=== PATIENT | female | born 1990 | race Caucasian/White ===

== ENCOUNTER 2020-01-16 10:01 | Emergency (ER) | payer BC, SELFPAY ==
[2020-01-16 10:13] VITALS: BP 137/75; PULSE 84; RESP 18; TEMP 36.9; O2SAT 99
--- NOTE | 2020-01-16 10:19 | ED.FEMALEGU ---
HPI - Female Genitourinary General Chief complaint: Urogenital-Female Stated complaint: uti Time Seen by Provider: 01/16/20 10:19 Source: patient and RN notes reviewed Mode of arrival: ambulatory Limitations: no limitations History of Present Illness HPI Narrative: 29-year-old female presents with concern for urinary tract infection. Reports history of urinary tract infections, particularly when she does not urinate after intercourse. Reports 1 day history of urinary urgency, frequency, pressure. Denies dysuria, hematuria, flank pain, abdominal pain, nausea, vomiting. MD elicited complaint: UTI Related Data Home Medications Medication Instructions Recorded Confirmed Chewable Multi Vitamin 1 tablet DAILY 01/16/20 01/16/20 norethindrone (contraceptive) 0.35 mg DAILY 01/16/20 01/16/20 Allergies Allergy/AdvReac Type Severity Reaction Status Date / Time No Known Allergies Allergy Verified 01/16/20 10:05 Review of Systems Review of Systems: Narrative: CONSTITUTIONAL: Denies malaise, chills, sweats, or fever. CARDIOVASCULAR: Denies chest pain, palpitations, or edema. RESPIRATORY: Denies cough or dyspnea. GASTROINTESTINAL: Denies abdominal pain, nausea, vomiting, diarrhea GENITOURINARY: Denies dysuria, flank pain, or hematuria. Reports urgency, frequency, suprapubic pressure MUSCULOSKELETAL: Denies back pain or myalgia. All systems reviewed & are unremarkable except as noted in HPI and below PMFSH Social History Social History Smoking status: Former smoker Alcohol intake: current Gender identity (if verbalized by the patient): Female Comments At time of signature, agree with nursing past medical, surgical, social and family history. There is no relevant family history pertinent to the presenting complaint Exam Narrative: Exam Narrative: GENERAL: Well-appearing, well-nourished, and in no acute distress. HEAD: Normocephalic. EYES: PERRLA, conjunctivae clear. NECK: Supple. No lymphadenopathy CHEST: Clear to auscultation. No respiratory distress. HEART: Regular rate and rhythm. ABDOMEN: Soft, nontender upon palpation, nondistended, normal active bowel sounds, no palpable or pulsatile masses, no guarding. No CVA tenderness SKIN: Warm, dry, no rash. NEURO: Alert and oriented x3. PSYCH: Normal mood and affect Course Course Emergency Course: Patient is aware of diagnosis, understands and agrees to treatment plan. Anticipatory guidance given. Patient agrees to follow-up as directed and is aware of reasons to seek care at the emergency department. Portions of this record may have been created with voice recognition software Vital Signs Vital signs: Vital Signs Temperature 98.5 F 01/16/20 10:13 Pulse Rate 84 01/16/20 10:13 Respiratory Rate 18 01/16/20 10:13 Blood Pressure 137/75 01/16/20 10:13 Pulse Oximetry 99 01/16/20 10:13 Temperature 98.5 F 01/16/20 10:13 Pulse Rate 84 01/16/20 10:13 Respiratory Rate 18 01/16/20 10:13 Blood Pressure 137/75 01/16/20 10:13 Pulse Oximetry 99 01/16/20 10:13 Reviewed. MDM - Female Genitourinary MDM Narrative Medical decision making narrative: Exam findings and UA show no acute concerns or changes; patient is non-toxic appearing and is in no distress. Patient is appropriate for outpatient treatment and follow-up. Differential Diagnosis Differential diagnosis: Likely urinary tract infection and cystitis Lab Data Labs: Urine Characteristics Cloudy Critical Care Time Critical Care Time Critical Care Time: No Discharge Plan Discharge Clinical Impression: Symptoms of urinary tract infection Patient Disposition: Home, Self-Care Condition: Stable Instructions: Antibiotic Form, Urinary Tract Infection in Women (ED) Additional Instructions: We will send a urine culture off to the lab; if the culture identifies an organism that the prescribed antibiotic will
== END 2020-01-16 10:32 | disposition home or self-care (01) ==
PROVIDERS: Emergency Provider Nurse Practitioner
DX: R35.0 Frequency of micturition (principal); R39.15 Urgency of urination; Z87.891 Personal history of nicotine dependence
CPT/HCPCS: 81003; 87077; 87086; 87088; 99213; G0463

== ENCOUNTER → 2021-02-13 14:05 | Outpatient (CLI) | payer BC, SELFPAY ==
--- NOTE | ~2021-02-13 | US_ITS ---
EXAMINATION: US OB <= 14 weeks fetus DATE: 02/13/2021 14:21 INDICATION: Uncertain dates. First trimester. TECHNIQUE: Real-time transabdominal pelvic ultrasound was performed. COMPARISON: None. FINDINGS: The uterus measures 11.1 x 7.6 x 8.6 cm. There is an intrauterine gestational sac. A yolk sac is iden tified. The crown rump length measures 3.4 cm, which correlates with an estimated gestational age of 10 weeks and 2 day(s) (+/-) 6 day(s). heart motion is identified measuring 178 beats per minute (bpm) by M-mode Doppler. The right ovary measures 3.6 x 3.3 x 3.0 cm. The left ovary measures 2.1 x 1.4 x 2.1 cm. There is no free fluid in the pelvis. IMPRESSION: 1. Single living intrauterine gestation with estimated date of delivery of 09/09/2021. Reviewed, dictated and finalized at location A. BODY INSPECTOR IMPRESSION: 1. Single living intrauterine gestation with estimated date of delivery of 08/14.
== END ==
PROVIDERS: Visit Provider Nurse Practitioner
DX: Z34.91 Encounter for supervision of normal pregnancy, unspecified, first trimester (principal); Z3A.10 10 weeks gestation of pregnancy
CPT/HCPCS: 76801

== ENCOUNTER → 2021-04-10 14:58 | Outpatient (CLI) | payer BC, SELFPAY ==
--- NOTE | ~2021-04-10 | US_ITS ---
US OB /maternal detail DATE: 04/10/2021 15:28 INDICATION: anatomy screen TECHNIQUE: Real time imaging and doppler analysis COMPARISON: 02/13/2021 obstetrical ultrasound FINDINGS: Live [place] intrauterine gestation, with fetus in variable position including breech. T he fetus is very active. Posterior placenta, lower margin 7 cm above internal os. Subjectively normal amount of amniotic fluid. Normal cerebral ventricle size. Normal cerebellum. Normal cisterna magna. Normal nuchal fold. upper lip normal. Normal cervical spine. diaphragm intact. heart rate of 145 beats per minute. Four chamber heart. Outflow tracts not well visualized. Fluid in stomach and urinary bladder. No hydronephrosis. Three vessel umbilical cord with normal inser tion at abdominal wall. Four extremities demonstrated. BPD 4.25 cm; 18 weeks 6 days Head circumference 16.13 cm; 19 weeks Abdominal circumference 14.25 cm; 19 weeks 4 days Femur length 3.06 cm; 19 weeks 3 days Composite age by Hadlock formula: 19 weeks 2 days plus or minus 1 week 2 days: ANGEL LUIS: 09/02/2021 EFW: 293.9 plus or mins 44 grams EFW-GP greater than 97% HC/AC: 1.13 (within normal range of 1.09-1.26) FL/HC 18.98 (slightly above normal range of 16.30-18.73) IMPRESSION: Composite age by Hadlock formula: 19 weeks 2 days plus or minus 1 week 2 days: ANGEL LUIS: 08/14 EFW: 293.9 plus or mins 44 grams Reviewed, dictated and finalized at Location A. Reviewed, dictated and finalized at location A. F OPERATOR SYNTHESIS IMPRESSION: Composite age by Hadlock formula: 19 weeks 2 days plus or minus 1 week 2 days: ANGEL LUIS: 09/02/2021 EFW: 293.9 plus or mins 44 grams
== END ==
PROVIDERS: Visit Provider Obstetrics & Gynecology Gynecology
DX: Z36.9 Encounter for antenatal screening, unspecified (principal); Z3A.19 19 weeks gestation of pregnancy
CPT/HCPCS: 76805

== ENCOUNTER 2021-05-12 10:08 | Emergency (ER) | payer BC, SELFPAY ==
--- NOTE | 2021-05-12 10:16 | ED.URI ---
HPI - URI/Sore Throat General Chief Complaint: Upper Respiratory Infection Stated Complaint: sorethroat,runny nose Time Seen by Provider: 05/12/21 10:20 Source: patient, RN notes reviewed and old records reviewed Mode of arrival: ambulatory Limitations: no limitations History of Present Illness HPI Narrative: 30-year-old female patient [facility] with complaints of sore throat and cough starting 3 days ago. Patient reports throat hurts worse when coughing, feels like needles. Reports stuffy and runny nose. Clear discharge, some sinus drainage. Reports top of teeth feel tender. Coughing throughout the day. Occasionally bringing up thick greenish sputum. Reports throat hurts when coughing. Denies shortness of breath or difficulty breathing. Appetite is good. Has been staying hydrated. Patient is 23 weeks . Has only been taking Tylenol, has been unsure what she can take being . Denies fever muscle aches or chills. MD elicited complaint: cough, sore throat, rhinorrhea and nasal congestion Related Data Home Medications Medication Instructions Recorded Confirmed ergocalciferol (vitamin D2) 1,250 mcg PO WEEKLY 05/12/21 05/12/21 Allergies Allergy/AdvReac Type Severity Reaction Status Date / Time No Known Allergies Allergy Verified 05/12/21 10:25 Review of Systems Review of Systems: CONSTITUTIONAL: Denies malaise, chills, sweats, or fever. EYES: Denies visual changes, redness, or discharge. ENT: Reports rhinorrhea, congestion, top of teeth are tender, and sore throat. Denies earache. CARDIOVASCULAR: Denies chest pain, palpitations, or edema. RESPIRATORY: Reports cough with greenish sputum. Denies dyspnea or shortness of breath. GASTROINTESTINAL: Denies abdominal pain, nausea, vomiting, diarrhea SKIN: Denies rash or itching. MUSCULOSKELETAL: Denies myalgia. NEUROLOGIC: Denies headache. All systems reviewed & are unremarkable except as noted in HPI and below PMFSH Social History Social History Smoking status: Former smoker Alcohol intake: current Gender identity (if verbalized by the patient): Female Comments At time of signature, agree with nursing past medical, surgical, social and family history. There is no relevant family history pertinent to the presenting complaint Exam Narrative: GENERAL: Well-appearing, well-nourished, female and in no acute distress. Pleasant and cooperative, casually dressed. Patient is 23 weeks . HEAD: Normocephalic, atraumatic EYES: Conjunctivae clear ENT: Nares clear, turbinates edematous and erythematous, clear discharge. Mucous membranes moist. TM pearly ortega with dull light reflex bilaterally; no tragal tenderness. Oropharynx erythematous without lesions. Tonsils enlarged and without exudate, no drooling, no hoarseness, no trismus, uvula midline. Clear postnasal drainage. NECK: Supple. Full range of motion. No anterior cervical or tonsillar lymphadenopathy or tenderness with palpation. CHEST: Clear to auscultation, breath sounds equal. No wheezing, rhonchi, rales, or stridor. No respiratory distress, speaks in full sentences. HEART: Regular rate and rhythm. No murmur heard. SKIN: [place], warm, dry, no rash. NEURO: Alert and oriented x3. PSYCH: Normal mood and affect Course Course Emergency Course: Patient is aware of diagnosis, understands and agrees to treatment plan. Anticipatory guidance given. Patient agrees to follow-up as directed and is aware of reasons to seek care at the emergency department. Portions of this record may have been created with voice recognition software Level of Care: Express Care Visit Vital Signs Vital signs: Vital Signs Temperature 36.7 C 05/12/21 10:18 Pulse Rate 83 05/12/21 10:18 Respiratory Rate 18 05/12/21 10:18 Blood Pressure 140/64 05/12/21 10:18 Pulse Oximetry 99 05/12/21 10:18 Temperature 36.7 C 05/12/21 10:18 Pulse
[2021-05-12 10:18] VITALS: BP 140/64; PULSE 83; RESP 18; TEMP 36.7; O2SAT 99
== END 2021-05-12 10:47 | disposition home or self-care (01) ==
PROVIDERS: Emergency Provider Nurse Practitioner Family
DX: O99.512 Diseases of the respiratory system complicating pregnancy, second trimester (principal); Z3A.23 23 weeks gestation of pregnancy; J06.9 Acute upper respiratory infection, unspecified; O90.89 Other complications of the puerperium, not elsewhere classified; R05.9 Cough, unspecified; Z87.891 Personal history of nicotine dependence
CPT/HCPCS: 87081; 87880; 99213; G0463

== ENCOUNTER → 2021-05-21 13:47 | Outpatient (CLI) | payer BC, SELFPAY ==
--- NOTE | ~2021-05-21 | US_ITS ---
EXAMINATION: US OB follow up DATE: 05/21/2021 14:19 INDICATION: Incomplete second trimester anatomic survey, spotting complicating second trimester TECHNIQUE: Real-time ultrasound of the pelvis was performed. The interpreting radiologist was not pre sent for the study. COMPARISON: None. FINDINGS: There is a single living fetus in vertex presentation. The placenta is posterior and 6 cm f rom the internal cervical os. cardiac activity and movement are noted. heart rate i s 158 beats per minute (bpm). The amniotic fluid index is 13.4 cm which is normal (normal range: 9.8 cm to 21.9 cm). The ventricular outflow tracts of the heart appear normal. The following biometric data were obtained: Biparietal diameter (BPD): 6.0 cm; head circumference (HC): 22.8 cm; abdominal circumference (AC): 19 .6 cm; femur length (FL): 4.5 cm. These measurements are concordant. Estimated weight is 706 g +/- 106 g, which correlates with the 60th percentile when 09/09/2021 i s used as estimated date of delivery. As single measurements, these parameters are each equal to the following estimated gestational ages w ith ranges of +/- 2 standard deviations: BPD: 24 weeks 4 days ( 22 weeks 3 days - 26 weeks 5 days). HC: 24 weeks 6 days ( 22 weeks 6 days - 27 weeks 0 days). AC: 24 weeks 2 days ( 22 weeks 1 days - 26 weeks 3 days). FL: 24 weeks 5 days ( 22 weeks 5 days - 26 weeks 6 days). estimated gestational age based solely on measurements from this exam is 24 weeks 4 days +/- 1 weeks 5 days. IMPRESSION: 1. Single living fetus in vertex presentation. 2. Estimated weight is 706 g +/- 106 g, which correlates with the 60th percentile when 2 is used as estimated date of delivery. 3. Normal amniotic fluid index. Reviewed, dictated and finalized at location B. IRON INSPECTOR IMPRESSION: 1. Single living fetus in vertex presentation. 2. Estimated weight is 706 g +/- 106 g, which correlates with the 60th rcentile when 09/09/2021 is used as estimated date of delivery. 3. Normal amniotic fluid index.
== END ==
PROVIDERS: Visit Provider Obstetrics & Gynecology Gynecology
DX: O26.852 Spotting complicating pregnancy, second trimester (principal); Z3A.24 24 weeks gestation of pregnancy
CPT/HCPCS: 76816

== ENCOUNTER → 2021-08-06 15:47 | Outpatient (CLI) | payer BC, SELFPAY ==
--- NOTE | ~2021-08-06 | US_ITS ---
EXAMINATION: US OB follow up DATE: 08/06/2021 16:11 INDICATION: Size greater than dates. Evaluate growth. TECHNIQUE: Real-time transabdominal obstetric ultrasound. FINDINGS: Comparison to multiple prior studies sequentially, with oldest reviewed study dated 2020. There is a single living fetus in vertex presentation. The placenta is posterior without placenta pr evia. cardiac activity and movement is noted with a heart rate of 1:30 beats per minute. The amniotic fluid volume is normal. SHILOH measures 15.8 cm. The following biometric data were obtained: BPD: 92mm corresponds to gestational age 37 weeks 1 days. Head circumference: 327mm corresponds to gestational age 37 weeks 0 days. Abdominal circumference: 336mm corresponds to gestational age 37 weeks 4 days. Femur length: 64mm corresponds to gestational age 32 weeks 6 days. Estimated weight: 2902grams +/- 435grams, 79.6% by Hadlock method.] IMPRESSION: 1. Single living intrauterine presentation with an estimated gestational age of 35 weeks 1 days by inititial ultrasound. EDC by initial ultrasound is 09/09/2021 Appropriate interval grow th. 2. Normal placenta. Reviewed, dictated and finalized at location A. IMPRESSION: 1. Single living intrauterine presentation with an estimated gestati onal age of 35 weeks 1 days by inititial ultrasound. EDC by initial ultrasound is 09/09/2021 Appropriate interval growth. 2. Normal placenta.
== END ==
PROVIDERS: PCP Nurse Practitioner; Visit Provider Nurse Practitioner
DX: O36.63X3 Maternal care for excessive fetal growth, third trimester, fetus 3 (principal); Z3A.37 37 weeks gestation of pregnancy
CPT/HCPCS: 76816

== ENCOUNTER 2021-09-02 04:47 | Inpatient (IN) | payer BC, SELFPAY ==
[2021-09-01 23:10] VITALS: BP 121/56; PULSE 74; RESP 16; TEMP 36.9; O2SAT 98
[2021-09-02] VITALS (183 sets, daily range): BP systolic 63–142; BP diastolic 41–104; PULSE 54–184; RESP 14–18; TEMP 36.4–37.4; O2SAT 81–100; BMI 36.6
[2021-09-02 05:20] LABS: Basophils Percent Auto 0.4 % (0.2-1.2); Eosinophils Absolute Auto 0.3 K/mm3 (0-0.3); Hemoglobin 12.5 g/dL (12.0-15.0); Immature Granulocyte Absolute 0.07 K/mm3 (0.00-0.031); Immature Granulocyte Percent A 0.7 % (0-0.5); Lymphocytes Absolute Auto 2.18 K/mm3 (0.9-3.2); Lymphocytes Percent Auto 20.5 % (18.3-44.2); Mean Corpuscular HGB Conc 32.9 g/dl (32-36); Mean Corpuscular Volume 91.3 fl (80-100); Mean Platelet Volume 10.3 fl (7.4-10.4); Monocytes Absolute Auto 0.8 K/mm3 (0.1-0.6); Monocytes Percent Auto 7.4 % (2.6-8.5); Neutrophils Absolute Auto 7.2 K/mm3 (1.3-6.7); Platelet Count Result 221 k/mm3 (150-375); Red Blood Count 4.16 M/mm3 (4.2-5.4); Red Cell Distribution Width 13.6 % (11.5-14.5); White Blood Count 10.6 K/mm3 (4.5-10.0)
[2021-09-02] MEDS: LACTATED RINGERS 1,000 ML 125 ML IV CONT ×3 (05:26→11:42)
[2021-09-02] MEDS: OXYTOCIN 30 UNITS/NS 500 ML 30 UNITS/500 ML BAG IV CONT (05:27)
--- NOTE | 2021-09-02 05:56 | WPDANESEPP ---
Anes - Eval Pre Procedure Procedure: labor epidural Date/Time: 09/02/21 05:56 Surgeon: joel Pre Op Diagnosis: Induction of Labor Patient Data Age: 31 Gender: F Height: 1.57 m Weight: 90.7 kg Last Vital Signs Temp 36.9 C 09/02/21 05:21 Pulse 91 09/02/21 05:45 Resp 18 09/02/21 05:21 BP 123/70 09/02/21 05:45 Allergies Allergy/AdvReac Type Severity Reaction Status Date / Time No Known Allergies Allergy Verified 05/12/21 10:25 Home Medications Medication Instructions Recorded Confirmed Type ergocalciferol (vitamin D2) 1,250 1,250 mcg PO WEEKLY 05/12/21 05/12/21 History mcg (50,000 unit) capsule Lactobacillus cap PO 08/19/21 History acidophilus-Bifidobac.animalis 2.5 billion cell capsule (Daily Probiotic) loratadine 10 mg tablet (Claritin) 10 mg PO DAILY 08/19/21 08/19/21 History prenat.vits,mely,nod-ubng-potbe 1 tablet PO HS 08/19/21 08/19/21 History Laboratory Tests 09/02/21 09/02/21 09/02/21 05:14 05:14 05:14 WBC 10.6 K/mm3 H K/mm3 (4.5-10.0) RBC 4.16 M/mm3 L M/mm3 (4.2-5.4) Hgb 12.5 g/dL g/dL (12.0-15.0) Hct 38.0 % % (37.0-47.0) MCV 91.3 fl fl (80-100) MCH 30.0 pg pg (26-34) MCHC 32.9 g/dl g/dl (32-36) RDW 13.6 % % (11.5-14.5) Plt Count 221 k/mm3 k/mm3 (150-375) MPV 10.3 fl fl (7.4-10.4) Immature Gran % (Auto) 0.7 % H % (0-0.5) Neut % (Auto) 68.0 % % (45.5-73.1) Lymph % (Auto) 20.5 % % (18.3-44.2) Esmeralda % (Auto) 7.4 % % (2.6-8.5) Eos % (Auto) 3.0 % % (0-4.4) Baso % (Auto) 0.4 % % (0.2-1.2) Lymph # (Auto) 2.18 K/mm3 K/mm3 (0.9-3.2) Esmeralda # (Auto) 0.8 K/mm3 H K/mm3 (0.1-0.6) Eos # (Auto) 0.3 K/mm3 K/mm3 (0-0.3) Baso # (Auto) 0.0 K/mm3 K/mm3 (0.0-0.1) Abs Immat Gran (auto) 0.07 K/mm3 H K/mm3 (0.00-0.031) Absolute Neuts (auto) 7.2 K/mm3 H K/mm3 (1.3-6.7) Absolute Nucleated RBC 0.0 K/mm3 K/mm3 (0.0-0.012) Nucleated RBC % 0.0 % % (0.0-0.2) RPR Pending Blood Type A Positive Antibody Screen Pending Patient hx anesthesia problems: none Family hx anesthesia problems: none Results Review: All pre-operative results and documents have been reviewed as part of the pre-operative evaluation. [facility] Family History Family History (Updated 08/19/21 @ 14:56 by Lulu Morin RN) Other Patient denies significant medical history Unknown family medical history Social History Social History Smoking status: Former smoker Tobacco type: cigarettes Smoking end date: 09/04/21 Alcohol intake: current Substance use: never Gender identity (if verbalized by the patient): Female Spiritual care concerns: No Exam Day of Procedure 09/02/21 05:56
--- NOTE | 2021-09-02 08:44 | WPDOBADMIT ---
Obstetrics - Admit Note Admission Note: record reviewed. No pertinent additions to the history and/or any subsequent changes in the physical findings that are not consistent with the expected course of the were found. Additions to the history and/or subsequent changes in the physical findings follow. None.Here for MIL at 39 wks. Cervix 3-4/50/-2 AROM with clear fluid. FHTs reactive.
--- NOTE | 2021-09-02 15:09 | PM.IMHP ---
H&P: HPI History of Present Illness Date/Time: 09/02/21 15:09 Chief Complaint: Failure to descend Narrative: the patient is a 31-year-old 3 para 2 admitted at 39 weeks for medical induction of labor. Labor progressed quickly. Patient had a 1hour episode of pushing with no descent. Position change and 2nd effort at pushing has been unsuccessful in bringing the infant pass the 0 station with the vertex. Was recommended at this time to proceed with primary . Patient voices understanding and agrees to proceed. In addition the patient has decided to have permanent sterilization and requests bilateral tubal ligation. As previously discussed in the office, risks of failure with increased ectopic were reviewed. The permanent irreversible nature of the sterilization was also discussed.Patient questions are answered. labs A-positive, rubella immune, RPR negative, HIV negative, hepatitis-B surface antigen negative, and group B strep negative. COUNTS INCLUDE 234 BEDS AT THE [facility] Past Medical History Medical History (Updated 09/02/21 @ 15:16 by Kusum Mosley MD) Depression Migraine with aura (normal spontaneous vaginal delivery) 2006 6lb 12oz female 2014 8lb 7oz female without dystocia noted at delivery but fractured clavicle Family History Family History (Updated 08/19/21 @ 14:56 by Lulu Morin, RN) Other Patient denies significant medical history Unknown family medical history Social History Social History Smoking status: Former smoker Tobacco type: cigarettes Smoking end date: 09/04/21 Alcohol intake: current Substance use: never Gender identity (if verbalized by the patient): Female Spiritual care concerns: No Meds Home Medications and Allergies Home Medications Medication Instructions Recorded Confirmed Type ergocalciferol (vitamin D2) 1,250 1,250 mcg PO WEEKLY 05/12/21 09/02/21 History mcg (50,000 unit) capsule Lactobacillus 1 cap PO DAILY 08/19/21 09/02/21 History acidophilus-Bifidobac.animalis 2.5 billion cell capsule (Daily Probiotic) loratadine 10 mg tablet (Claritin) 10 mg PO DAILY 08/19/21 08/19/21 History prenat.vits,mely,bbe-pomz-moley 1 tablet PO HS 08/19/21 08/19/21 History Allergies Allergy/AdvReac Type Severity Reaction Status Date / Time No Known Allergies Allergy Verified 05/12/21 10:25 Vital Signs Vital Signs - 24 hr 09/02/21 05:21 09/02/21 05:28 09/02/21 05:30 Temperature 98.5 F Pulse Rate 94 100 Respiratory Rate 18 Blood Pressure 130/69 129/79 Pulse Oximetry 09/02/21 05:45 09/02/21 06:00 09/02/21 06:15 Temperature Pulse Rate 91 97 91 Respiratory Rate Blood Pressure 123/70 128/74 122/71 Pulse Oximetry 09/02/21 06:30 09/02/21 07:00 09/02/21 07:15 Temperature Pulse Rate 95 87 84 Respiratory Rate Blood Pressure 124/78 132/72 109/54 L Pulse Oximetry 09/02/21 07:30 09/02/21 07:45 09/02/21 08:00 Temperature 98 F Pulse Rate 98 82 90 Respiratory Rate Blood Pressure 129/76 122/71 130/72 Pulse Oximetry 09/02/21 08:15 09/02/21 08:29 09/02/21 08:34 Temperature Pulse Rate 80 Respiratory Rate Blood Pressure 135/71 Pulse Oximetry 99 98 09/02/21 08:37 09/02/21 08:38 09/02/21 08:39 Temperature Pulse Rate 92 91 Respiratory Rate Blood Pressure 142/78 H 135/72 Pulse Oximetry 99 09/02/21 08:40 09/02/21 08:43 09/02/21 08:44 Temperature Pulse Rate 86 97 Respiratory Rate Blood Pressure 138/74 132/69 Pulse Oximetry 98 09/02/21 08:45 09/02/21 08:48 09/02/21 08:49 Temperature Pulse Rate 103 H 82 Respiratory Rate Blood Pressure 140/64 124/52 L Pulse Oximetry 99 09/02/21 08:50 09/02/21 08:53 09/02/21 08:54 Temperature Pulse Rate 80 85 Respiratory Rate Blood Pressure 129/57 L 125/59 L Pulse Oximetry 99 09/02/21 08:55 09/02/21 08:58
--- NOTE | 2021-09-02 15:10 | P.PNAN_ITS ---
Anes - Eval Final PreProcedure Day of Procedure 09/02/21 15:10 Patient weight: obese Heart: regular rate and rhythm Lungs: clear to auscultation and normal air movement Airway: Mallampati scale class II Neurological: alert and oriented Last oral intake: >/= 8 hours ASA classification: II Emergent: no Anesthetic plan: proceed Anesthesia type and monitoring: regional spinal and standard monitoring Other findings: To C/S Results Review: All pre-operative results and documents have been reviewed as part of the pre- operative evaluation. Informed Consent: The patient's anesthetic plan and its attendant risks and benefits were discussed with the patient/family/POA. Questions were solicited and answers provided to the satisfaction of the patient/family/POA.
[2021-09-02] MEDS: ceFAZolin 2 GM/D5W 50 ML 2 GM/50 ML BAG IVPB (15:30)
--- NOTE | 2021-09-02 16:26 | P.OP_ITS ---
Procedure Note - Detailed Date of Procedure 09/02/21 Pre-op Diagnosis Intrauterine at 39 weeks failure to descend requests sterilization Post-op Diagnosis Same Procedure Performed primary low-transverse section with bilateral salpingectomy Surgeon Kusum Mosley MD Anesthesia Spinal ( for ) and Epidural ( for labor and no longer working) Findings Female infant 9lb 2oz with 8 and 9 Apgars. right occiput transverse positi on. Normal-appearing tubes ovaries and uterus Description of Procedure the patient was taken to the operating room and placed under anesthesia in the dorsal supine position with a leftward tilt. Once anesthesia was deemed adequate she was prepped and draped in the usual sterile fashion. Pfannenstiel skin incision was made with a scalpel and carried down to the underlying layer of fascia which was nicked in the midline. Fascial incision was extended laterally using Winn scissors. Ochsner was used to tent the fascia which was then dissected off using sharp and blunt dissection. The rectus muscles are in the midline and the peritoneum tented with a Peon and entered with Metzenbaum scissors. The incision was extended with blunt traction. The bladder blade is placed. The lower uterine segment is inspected and the vesicouterine peritoneum tented with Peon and entered with Metzenbaum this extended laterally. The bladder flap was created digitally and the bladder blade replaced. The lower uterine segment was incised in a transverse fashion with the scalpel. The incision was extended laterally using blunt traction. The infant's head was and brought up into the incision and delivered and noted to be in right occiput transverse position. The was fully delivered and the cord clamped and cut. The cord gases and cord blood were taken. The placenta was removed using manual traction. The uterus is cleared of all clots and debris and exteriorized. The uterine incision was closed using 0 Monocryl in a running locked fashion. Same suture was used to imbricate and 1 additional [id number]-[id number] suture was required in the left angle. the tubal ligation was verified with the patient and the right tube grasped with a [place] and cr ossclamped using a zeppelin clamp. The distal 2/3 of the tube are excised and the pedicle tied off using 0 Vicryl in a Dara stitch and free tied. The identical procedure was performed on the opposite side. Good hemostasis is noted at both pedicles. The uterus was returned to the abdomen and the incision inspected and noted to be hemostatic. The fascia was then closed using 0 Vicryl in a running fashion. Subcutaneous tissues were irrigated and made hemostatic using Bovie cautery. The skin incision was closed using 4-0 Vicryl in a subcuticular fashion. Dermaflex was placed over the incision. Sponge, needle, and instrument counts are correct per the OR staff. Patient was given Ancef prior to incision. Estimated Blood Loss 740 Drains Yes ( Chand catheter) Packing No Pathology Yes ( bilateral tubes) Complications No immediate complications Condition Stable Disposition Floor
--- NOTE | 2021-09-02 16:31 | P.DS_ITS ---
DS: Admitting Diagnosis Discharge Date 09/05/21 Admitting Diagnosis intrauterine at 39 weeks for medical induction of labor DS: Discharge Diagnosis Discharge Diagnosis (1) Failure of descent in labor, delivered, current hospitalization: Code(s): O62.2 - Other uterine inertia Status: Acute (2) 39 weeks gestation of : Code(s): Z3A.39 - 39 weeks gestation of Status: Acute (3) Encounter for sterilization: Code(s): Z30.2 - Encounter for sterilization Status: Acute OB - DS: Summary OB Procedures : Ultrasound OB Procedures Intrapartum: low cervical, transverse OB Procedures: : None Peripartum Data Infant Delivery Method: Section Procedures: Procedures Operation Date: 09/02/21 15:15 <No data on this case meets the specified criteria> complications: none Status at Discharge Functional status at discharge: independent ambulation Overall status at discharge: patient is progressing back to baseline Time Spent with Patient Time attestation: Total time spent providing and/or coordinating discharge services: DS: Data Data Completed and Pending Labs on day of discharge: Labs from last 24 hours 09/02/21 09/02/21 09/02/21 05:14 05:14 05:14 WBC 10.6 H RBC 4.16 L Hgb 12.5 Hct 38.0 MCV 91.3 MCH 30.0 MCHC 32.9 RDW 13.6 Plt Count 221 MPV 10.3 Immature Gran % (Auto) 0.7 H Neut % (Auto) 68.0 Lymph % (Auto) 20.5 [place] % (Auto) 7.4 Eos % (Auto) 3.0 Baso % (Auto) 0.4 Lymph # (Auto) 2.18 [place] # (Auto) 0.8 H Eos # (Auto) 0.3 Baso # (Auto) 0.0 Abs Immat Gran (auto) 0.07 H Absolute Neuts (auto) 7.2 H Absolute Nucleated RBC 0.0 Nucleated RBC % 0.0 RPR Pending Blood Type A Positive Antibody Screen Negative Discharge Plan Discharge Attending physician on discharge: Kusum Mosley Discharging Clinician: Kusum Mosley Anticipated Discharge Date/Time: 09/05/21 16:33 Patient Disposition: Home, Self-Care Activity: may shower, may drive after 2 weeks and pelvic rest Diet: regular Patient Instructions: Antibiotic Form Stand Alone Forms: General Discharge Information Follow-up/Referrals: Kusum Mosley MD [Physician] - 1 Week ( and 6 weeks) Discharge Medications: New hydrocodone-acetaminophen 5-325 mg tablet 1 tablet PO Q4H PRN (Reason: pain) Qty: 20 0RF Continued ergocalciferol (vitamin D2) 1,250 mcg (50,000 unit) capsule 1,250 mcg PO WEEKLY loratadine [Claritin] 10 mg Tablet 10 mg PO DAILY #2 Tablet 1 tablet PO HS Daily Probiotic 2.5 billion cell Capsule 1 cap PO DAILY Date of admission: 09/02/21 04:47 Primary Care Provider: Denny,Nicole Admitting Provider: Kusum Mosley Attending physician on admission: Kusum Mosley Condition: Stable
[2021-09-02 17:16] LABS: Rapid Plasma Reagin Non-Reactive (NonReactive)
[2021-09-02] MEDS: SIMETHICONE 80 MG TAB.CHEW PO (20:47)
[2021-09-02] MEDS: HYDROcodone/acetaminophen (*CRX) 10-325 MG TABLET 1 TAB PO (20:48)
[2021-09-02] MEDS: IBUPROFEN 600 MG TABLET PO (20:49)
[2021-09-03 03:30] VITALS: BP 102/59; PULSE 73; RESP 16; TEMP 36.6; O2SAT 98
[2021-09-03] MEDS: IBUPROFEN 600 MG TABLET PO ×3 (03:31→19:43)
[2021-09-03] MEDS: SIMETHICONE 80 MG TAB.CHEW PO ×4 (03:32→19:44)
[2021-09-03] MEDS: HYDROcodone/acetaminophen (*CRX) 5-325 MG TABLET 1 TAB PO ×5 (03:32→21:46)
[2021-09-03 05:03] LABS: Basophils Percent Auto 0.3 % (0.2-1.2); Eosinophils Absolute Auto 0.1 K/mm3 (0-0.3); Eosinophils Percent Auto 1.2 % (0-4.4); Hematocrit 33.1 % (37.0-47.0); Hemoglobin 10.7 g/dL (12.0-15.0); Immature Granulocyte Absolute 0.04 K/mm3 (0.00-0.031); Immature Granulocyte Percent A 0.3 % (0-0.5); Lymphocytes Absolute Auto 1.61 K/mm3 (0.9-3.2); Lymphocytes Percent Auto 13.8 % (18.3-44.2); Mean Corpuscular HGB Conc 32.3 g/dl (32-36); Mean Corpuscular Hemoglobin 30.1 pg (26-34); Mean Corpuscular Volume 93.2 fl (80-100); Mean Platelet Volume 10.5 fl (7.4-10.4); Monocytes Absolute Auto 0.7 K/mm3 (0.1-0.6); Monocytes Percent Auto 6.1 % (2.6-8.5); Neutrophils Absolute Auto 9.2 K/mm3 (1.3-6.7); Neutrophils Percent Auto 78.3 % (45.5-73.1); Platelet Count Result 188 k/mm3 (150-375); Red Blood Count 3.55 M/mm3 (4.2-5.4); Red Cell Distribution Width 13.6 % (11.5-14.5); White Blood Count 11.7 K/mm3 (4.5-10.0)
--- NOTE | 2021-09-03 07:26 | WPDANLDPN2 ---
Anes-Prog Note L&D Date/Time: 09/03/21 07:26 Comfortable throughout: section Neuraxial method: spinal Epidural/Spinal procedure site: clean & non-tender Neuro status: Neuro function grossly intact. Cardiovascular status: normal Respiratory status: normal Airway patency: baseline Mental status: baseline Post-Op hydration status: normal Vital Signs: Last Vital Signs Temp 36.6 C 09/03/21 03:30 Pulse 73 09/03/21 03:30 Resp 16 09/03/21 03:30 BP 102/59 L 09/03/21 03:30 Pulse Ox 98 09/03/21 03:30 O2 Del Method Room Air 09/03/21 03:30 Pain score (VAS): 03/24 I/O: Intake & Output 09/02/21 09/02/21 09/03/21 15:59 23:59 07:59 Intake Total 3000 150 4000 Output Total 1633 1400 Balance 3000 -1483 2600 Post-procedural complaints: none Patient feedback: Patient satisfied with anesthetic care.
--- NOTE | 2021-09-03 07:27 | WPDANLDNPN2 ---
Anes-Prog Note L&D-Neuraxial Date/Time: 09/03/21 07:27 Neuraxial medications: intrathecal PF morphine Opiod-related complaints: none Patient feedback: Patient satisfied with post-operative pain management.
[2021-09-03 07:50] VITALS: BP 108/41; PULSE 78; RESP 16; TEMP 36.3; O2SAT 100
[2021-09-03] MEDS: MULTIVIT/MIN/PREN/FOL AC/IRON TABLET 1 TAB PO (08:10)
--- NOTE | 2021-09-03 09:25 | PM.OBPNVD ---
OB - PN: Subj Subjective Date/time seen: 09/03/21 0740 Patient comments: pain well controlled baby status: nursing well feeding status: exclusively breast feeding OB - PN: Obj Data Labs CBC & Chem 7: 09/03/21 03:42 Labs: Laboratory Results - last 24 hr 09/02/21 09/03/21 05:14 03:42 WBC 11.7 H RBC 3.55 L Hgb 10.7 L Hct 33.1 L MCV 93.2 MCH 30.1 MCHC 32.3 RDW 13.6 Plt Count 188 MPV 10.5 H Immature Gran % (Auto) 0.3 Neut % (Auto) 78.3 H Lymph % (Auto) 13.8 L [place] % (Auto) 6.1 Eos % (Auto) 1.2 Baso % (Auto) 0.3 Lymph # (Auto) 1.61 [place] # (Auto) 0.7 H Eos # (Auto) 0.1 Baso # (Auto) 0.0 Abs Immat Gran (auto) 0.04 H Absolute Neuts (auto) 9.2 H Absolute Nucleated RBC 0.0 Nucleated RBC % 0.0 RPR Non-reactive OB - PN A/P Plan day: 1 Plan: routine care Time Spent With Patient Time: Total time spent is greater than 50% in coordination of care (as documented) at patient's floor/unit and/or counseling patient: Review of Systems Review of Systems: All systems reviewed & are unremarkable except as noted in HPI and below Exam Const: Orientation/consciousness: patient oriented x3 Limitations: no limitations Resp: Effort & Inspection: normal respiratory effort and able to speak in complete sentences Auscultation: clear to auscultation bilaterally Cardio: Rate: regular rate Peripheral pulses: Peripheral pulses 2+ throughout GI: Inspection: normal to inspection Auscultation: normal bowel sounds : General: Yes bladder normal to palpation Bimanual exam- vagina & uterus: bladder normal to palpation Other: Fundus firm Skin: General skin exam: normal color Other: Incision clean, dry, and intact. Neuro: General: patient oriented x3 Cognition (Neuro): normal cognition Extrem: General: normal to inspection and edema (1+ BLE pitting edema) Psych: Appearance: grossly normal Speech and movement: Normal speech and movement present Affect: normal affect Attitude: cooperative
[2021-09-03 11:40] VITALS: BP 101/56; PULSE 79; RESP 18; TEMP 36.3; O2SAT 96
[2021-09-03] MEDS: DOCUSATE SODIUM 100 MG CAPSULE PO (17:19)
[2021-09-03 17:20] VITALS: BP 126/68; PULSE 74; RESP 18; TEMP 36.7; O2SAT 100
[2021-09-03 20:00] VITALS: BP 125/67; PULSE 102; RESP 18; TEMP 36.6; O2SAT 99
[2021-09-04] MEDS: IBUPROFEN 600 MG TABLET PO ×3 (02:19→14:58)
[2021-09-04] MEDS: HYDROcodone/acetaminophen (*CRX) 5-325 MG TABLET 1 TAB PO ×6 (02:19→19:55)
--- NOTE | 2021-09-04 07:19 | PM.OBPNVD ---
OB - PN: Subj Subjective Date/time seen: 09/04/21 07:19 Patient comments: no complaints and pain well controlled baby status: doing well OB - PN: Obj Data Labs CBC & Chem 7: 09/03/21 03:42 OB - PN A/P Plan day: 2 Plan: routine care Time Spent With Patient Time: Total time spent is greater than 50% in coordination of care (as documented) at patient's floor/unit and/or counseling patient: Exam Narrative: inc c/d/i : Bimanual exam- vagina & uterus: other (Uterus firm, nt @U)
[2021-09-04 08:15] VITALS: BP 131/70; PULSE 90; RESP 16; TEMP 36.4; O2SAT 99
[2021-09-04] MEDS: DOCUSATE SODIUM 100 MG CAPSULE PO ×2 (08:26→17:24)
[2021-09-04] MEDS: MULTIVIT/MIN/PREN/FOL AC/IRON TABLET 1 TAB PO (08:26)
[2021-09-04] MEDS: SIMETHICONE 80 MG TAB.CHEW PO ×2 (08:26→14:58)
--- NOTE | 2021-09-04 15:11 | PC.NURSE ---
late entry from 09/03/2021 [id number] Introductions were made, then consulted with patient to assess needs related to . Mother led the conversation with her experience feeding her so far. Mother works well with her . Encouraged understanding of the benefits of skin to skin (unwrapping infant and placing vertically on her chest). Infant is sleepy and reluctant. Mother voiced she would call for assistance. Mother voiced understanding of responsive feedings, stimulating with skin to skin, hand expressed colostrum, touch, talking to to encourage if it has been 2 -3 hours since the start of the last , to call if does not latch or there is discomfort with . Reported to the primary RN. late entry from 09/03/2021 [id number] Consulted with patient to assess needs related to . Reviewed working with , breast, nipples and how to protect the nipples with an optimal deep latch, good positioning, and good hand washing. Encouraged understanding the benefits of skin to skin, responding to feeding cues, frequencies of feeding 8-12 times in 24 hours (approximately 2-3 hours), duration of feedings, milk production, intake/output feeding sheet and signs of adequate intake encouraging swallowing at the breast. Reviewed positioning and alignment, supporting breast, off-centered (asymmetrical latch) and leading with the chin with big open wide gape. Infant latched optimally to the right breast in football position and maintained latch for 5 minutes without discomfort to mother. Education given to mother of how to visualize suck/swallow ratios and drinking at the breast. was able to optimally latch to the left breast using football positioning and maintain latch without discomfort to mother. Nipple care reviewed with optimal latch, good positioning and to have clean hands when touching the nipple/breast as needed. Resources used to facilitate learning were used from the [visual handout/ tool/mom and baby guide]. Mother voiced understanding of the education shared, calling for assistance if the infant does not latch or if there is discomfort with . Reported to the primary RN.
--- NOTE | 2021-09-04 15:26 | PC.NURSE ---
[id number] Mother verbalizes she is able to independently latch with appropriate positioning/alignment. She denies any nipple discomfort and is responsively . is currently meeting outcomes for weight, output, jaundice and feeding frequencies of 8-12 times in 24 hours. Mother declines any additional assistance/education at this time. Mother is encouraged to call for assistance if her doesn?t latch or there is discomfort with latching. Mother voiced understanding of information shared and mom and baby guide reviewed for additional resource information .
[2021-09-04 19:57] VITALS: BP 128/69; PULSE 93; RESP 17; TEMP 36.8; O2SAT 100
[2021-09-05] MEDS: HYDROcodone/acetaminophen (*CRX) 5-325 MG TABLET 1 TAB PO ×2 (00:50→07:01)
[2021-09-05] MEDS: IBUPROFEN 600 MG TABLET PO (07:01)
[2021-09-05] MEDS: DOCUSATE SODIUM 100 MG CAPSULE PO (07:01)
[2021-09-05] MEDS: MULTIVIT/MIN/PREN/FOL AC/IRON TABLET 1 TAB PO (07:01)
--- NOTE | 2021-09-05 07:07 | PM.OBPNVD ---
OB - PN: Subj Subjective Date/time seen: 09/05/21 07:07 Patient comments: no complaints and pain well controlled baby status: doing well OB - PN: Obj Data Labs CBC & Chem 7: 09/03/21 03:42 OB - PN A/P Plan day: 3 Plan: routine care, discharge home and follow up 6 weeks Time Spent With Patient Time: Total time spent is greater than 50% in coordination of care (as documented) at patient's floor/unit and/or counseling patient: Exam Narrative: inc c/d/i : Bimanual exam- vagina & uterus: other (Uterus firm, nt @U)
[2021-09-05 07:55] VITALS: BP 124/69; PULSE 80; RESP 16; TEMP 36.8; O2SAT 99
--- NOTE | 2021-09-05 10:32 | PC.NURSE ---
Patient to view the discharge video Mother & Baby Care, The First Two Weeks online. Patient was given the opportunity and encouraged to ask questions. Patient verbalized understanding of information shared and has been given the mother/baby guide for home reference.
[2021-09-06 10:04] VITALS: BP 125/85; PULSE 81; RESP 18; TEMP 36.7; O2SAT 100
== END 2021-09-05 11:24 | disposition home or self-care (01) | DRG 785 ==
LOC: ANHLDR 16:34 → ANHOB2 18:53
PROVIDERS: Admitting Provider Obstetrics & Gynecology Gynecology; PCP Nurse Practitioner; Visit Provider Obstetrics & Gynecology Gynecology
PROC: 10D00Z1 Extraction of Products of Conception, Low, Open Approach (ICD-10-PCS; CPT 59514; principal; 2021-09-02 15:15)
DX: O62.2 Other uterine inertia (principal); Z37.0 Single live birth; Z3A.39 39 weeks gestation of pregnancy; O36.8330 Maternal care for abnormalities of the fetal heart rate or rhythm, third trimester, not applicable or unspecified; Z30.2 Encounter for sterilization
CPT/HCPCS: 36415; 85025; 86592; 86850; 86900; 86901; 88302; A9270; J0131; J0690; J1885; J2210; J2274; J2405; J2590; J2795; J7120

== ENCOUNTER 2023-06-03 02:16 | Day surgery (SDC) | payer OTHER, SELFPAY ==
[2023-05-27 14:42] VITALS: BMI 23.6
--- NOTE | 2023-05-27 14:46 | PC.NURSE ---
Report to the Outpatient Waiting Room, entrance under the green pavilion located off [facility], at time 0600 on date 06/03/23. Planned Procedure Time: 0730. Time changes happen often and if your time is changed the preop area will call you the afternoon before. - You and your visitor will be asked to self-screen and do not enter if you have any COVID symptoms. - A mask is optional within the hospital at this time. Patients may have clear liquids (water, carbonated beverages, clear teas, apple juice) until 3 hours prior to surgery with a maximum of 20 ounces. - No food from midnight until time of surgery Take the following medications with a SIP of water the morning of surgery: NONE DO NOT STOP ANY OF YOUR OTHER PRESCRIPTION MEDICATIONS PRIOR TO SURGERY ?EXCEPT THE FOLLOWING Medications to discontinue per physician: VITAMINS Date to take last dose: 05/30/23 Please no make-up, nail peruvian, hairspray, perfume, deodorant, or body powder the day of surgery. No jewelry (including any body piercings) or valuables the day of surgery, leave them at home. Please take a shower or bath the night before, or the morning of, surgery with an antibacterial soap. Wear comfortable, loose fitting clothing. - Jewelry must be removed prior to entering the operating room. Rings and piercings that are not removed may be cut off. - The hospital will not accept responsibility for valuables. - Please leave all valuables, including medications, at home the day of surgery. If you are going home after surgery, a licensed bull driver must drive you home. - NO public transportation without another adult if you receive anesthesia. - We recommend that an adult stay with you for 24 hours following discharge. - We also recommend that you do not drive, make important decision, drink alcoholic beverages, or take any drugs that were not prescribed by your health care provider for at least 24 hours after your discharge time. Follow any additional instructions given to you from your surgeon. If you or anyone in your household have experienced Covid symptoms in the past week, please notify your surgeon or the nurse liaison at the phone number below for possible testing. Telephone instructions given to PT Levi HALL and asked if any additional questions and then verbalized understanding. Patient advised to call surgeon office or pre surgery nurse liaison [phone] if any additional questions.
[2023-06-03] VITALS (8 sets, daily range): BP systolic 109–137; BP diastolic 59–74; PULSE 77–106; RESP 12–18; TEMP 36.2–36.7; O2SAT 98–100
[2023-06-03] MEDS: LACTATED RINGERS 1,000 ML 30 ML IV CONT ×2 (06:50→08:25)
--- NOTE | 2023-06-03 07:04 | WPDHPUPDATE1 ---
History and Physical Update Update Date/Time: 06/03/23 07:04 History and Physical has been reviewed, including an updated exam of the patient. There are NO changes in the patient's condition. Risks, benefits, and alternatives have been discussed and questions answered. Patient agrees to proceed with procedure.
--- NOTE | 2023-06-03 07:12 | W.PM.PROC2 ---
Procedure Note - Detailed Date of Procedure 06/03/23 Pre-op Diagnosis Micromastia Post-op Diagnosis Same Procedure Performed 1. Bilateral augmentation mammaplasty 2. Bilateral nipple reduction Surgeon Irineo Ellis MD Anesthesia General Findings Bilateral Benny Canela SoftTouch 450cc Right - REF# SSF-450 SN [id number] Dual Plane 2 Left - REF# SSF-[id number] SN [id number] Dual Plane 1 Description of Procedure She is here today for bilateral breast augmentation / nipple reduction. Previously and again today the risks, benefits, alternatives were discussed in extensive detail. We had a lengthy discussion about her natural asymmetry and how this would persist. Lengthy discussion about what a nipple reduction would and would not accomplish. I wanted her to be very realistic about the risks involved as well as expectations. We discussed aftercare and what to monitor for. Made sure answered all of her questions to her satisfaction today and consent was obtained. Marked in the preoperative holding area with their verification. The patient was taken to the operating room placed supine on the operating table. Anesthesia was provided by anesthesiology. A surgical time-out was taken. We cleansed the skin and 1% lidocaine and 0.25% Marcaine with epinephrine was used anesthetize as a field block. She was prepped and draped in a standard sterile fashion. Tegaderm nipple Baron were placed. A 15 blade used to make an incision along the inframammary fold. Dissection was continued at 45 degree angle until the chest wall as identified. I incised the pectoralis major along its inferior border and completely released the inferior border leaving the medial border intact. I created a subpectoral pocket in the appropriate dimensions based on our preoperative planning for the implant. I then copiously irrigated with saline solution and verified a strict hemostasis. Next the use a triple antibiotic and Betadine containing solution to irrigate the pocket. I washed my gloves with the triple antibiotic and Betadine solution. We washed the implant immediately upon opening it with this solution and only opened it when we needed it. I used implant funnel and no-touch technique. The implant was introduced into the pocket using the funnel. Having verified positioning of the implant this was closed using 2-0 PDS followed by 3-0 Monocryl in a running subcuticular 4-0 Monocryl followed by tissue glue. [place] incision made bilateral nipple and intervening tissue removed. This was closed with 5-0 Chromic. Fluffs and surgical bra were placed. Patient was awoke and taken to PACU without difficulty. All instrument sponge counts were correct at the end of the case. Estimated Blood Loss 25 Drains No Packing No Pathology None sent Complications No immediate complications Condition Stable Disposition PACU
--- NOTE | 2023-06-03 07:13 | WPDANESEPPF ---
Anes - Initial Pre Proc Eval Procedure: Operation Date: 06/03/23 07:30 Proposed Procedures p Bilateral Breast Augmentation - Irineo Ellis MD s Bilateral Nipple Reduction - Irineo Ellis MD Date/Time: 06/03/23 07:13 Surgeon: Irineo Ellis MD Pre Op Diagnosis: Micromastia Patient Data Age: 32 Gender: F Height: 1.57 m Weight: 57.3 kg Last Vital Signs Temp 98.0 F 06/03/23 06:52 Pulse 86 06/03/23 06:52 Resp 16 06/03/23 06:52 BP 129/62 06/03/23 06:52 Pulse Ox 100 06/03/23 06:52 O2 Del Method Room Air 06/03/23 06:52 Allergies Allergy/AdvReac Type Severity Reaction Status Date / Time No Known Allergies Allergy Verified 06/03/23 06:17 Home Medications Medication Instructions Recorded Confirmed Type loratadine 10 mg tablet (Claritin) 10 mg PO DAILY 08/19/21 06/03/23 History prenat.vits,mely,pri-vztr-vjapu 1 tablet PO HS 08/19/21 06/03/23 History methylphenidate HCl 5 mg tablet 5 mg PO BID 05/27/23 06/03/23 History Patient hx anesthesia problems: none Family hx anesthesia problems: none Results Review: All pre-operative results and documents have been reviewed as part of the pre-operative evaluation. [facility] [place] Past Medical History Medical History (Updated 09/05/21 @ 07:08 by Kusum Mosley MD) Depression Migraine with aura (normal spontaneous vaginal delivery) 2006 6lb 12oz female 2014 8lb 7oz female without dystocia noted at delivery but fractured clavicle Family History Family History (Updated 08/19/21 @ 14:56 by Lulu Morin RN) Other Patient denies significant medical history Unknown family medical history Social History Social History Smoking status: Never smoker Tobacco type: cigarettes Smoking end date: 09/04/21 Alcohol intake: current Drinks per week: 4 Alcohol use details: WEEKENDS Substance use: current Substance use type: marijuana Living arrangements: with family Gender identity (if verbalized by the patient): Female Spiritual care concerns: No Anes - Eval Final PreProcedure Day of Procedure 06/03/23 07:13 Patient weight: normal Heart: regular rate and rhythm Lungs: clear to auscultation Airway: Mallampati scale class II Neurological: alert and oriented Last oral intake: >/= 8 hours ASA classification: II Emergent: no Anesthetic plan: proceed Anesthesia type and monitoring: general LMA and standard monitoring Results Review: All pre-operative results and documents have been reviewed as part of the pre-operative evaluation. Informed Consent: The patient's anesthetic plan and its attendant risks and benefits were discussed with the patient/family/POA. Questions were solicited and answers provided to the satisfaction of the patient/family/POA.
[2023-06-03] MEDS: ceFAZolin 2 GM/D5W 50 ML 2 GM/50 ML BAG IVPB (07:25)
[2023-06-03] MEDS: LIDO 1%/EPINEPHRINE 1:100,000 50 ML VIAL 30 ML INFILTRATE (07:25)
[2023-06-03] MEDS: NACL 0.9% IRRIG POUR BOTTLE 900 ML, GENTAMICIN SULFATE INJ 160 MG, ceFAZolin 2 GM, POVI... IRRIGATION (07:25)
[2023-06-03] MEDS: TRANEXAMIC ACID 1,000MG/ISO100 1,000 MG/100 ML BAG 200 MG IVPB (07:33)
[2023-06-03] MEDS: BUPivacaine HCL 0.25% PF 30 ML VIAL INFILTRATE (07:54)
[2023-06-03] MEDS: fentaNYL CITRATE INJ (*CRX) 100 MCG/2 ML VIAL 25 MCG IV PUSH ×7 (08:35→08:55)
[2023-06-03] MEDS: oxyCODONE HCL (*CRX) 5 MG TAB IR PO (09:30)
== END 2023-06-03 09:55 | disposition home or self-care (01) ==
PROVIDERS: PCP Nurse Practitioner; Visit Provider Surgery Plastic and Reconstructive Surgery
PROC: (CPT 19325; principal; 2023-06-03 07:30)
PROC: (CPT 19350; 2023-06-03 07:30)
DX: Z41.1 Encounter for cosmetic surgery (principal); N64.82 Hypoplasia of breast; F12.90 Cannabis use, unspecified, uncomplicated
CPT/HCPCS: 19325; 19350; A9270; J0690; J1100; J1580; J2250; J2405; J2704; J3010; J7120

== ENCOUNTER 2023-06-25 16:36 | Emergency (ER) | payer BC, SELFPAY ==
[2023-06-25 16:48] VITALS: BP 118/63; PULSE 81; RESP 18; O2SAT 100
--- NOTE | 2023-06-25 17:09 | ED.URI ---
HPI - URI/Sore Throat General Chief Complaint: Upper Respiratory Infection Stated Complaint: Sore Throat Time Seen by Provider: 06/25/23 16:55 Source: patient Mode of arrival: ambulatory Limitations: no limitations History of Present Illness HPI Narrative: 32-year-old female presents with complaint of pain to right side of throat for 1 week. Reports worse with swelling. States it feels like she cut herself with like a chip or something .afebrile. No other symptoms today. All systems reviewed and negative except as noted above. Related Data Home Medications Medication Instructions Recorded Confirmed loratadine 10 mg tablet (Claritin) 10 mg PO DAILY 08/19/21 06/25/23 prenat.vits,mely,hel-aeiq-jkmym 1 tablet PO HS 08/19/21 06/25/23 methylphenidate HCl 5 mg tablet 5 mg PO BID 05/27/23 06/25/23 Allergies Allergy/AdvReac Type Severity Reaction Status Date / Time No Known Allergies Allergy Verified 06/25/23 16:40 Review of Systems Review of Systems: CONSTITUTIONAL: Denies fever, chills, or sweats. EYES: Denies visual changes, redness, or discharge. ENT: Denies rhinorrhea, congestion . Reports sore throat. Denies otalgia. CARDIOVASCULAR: Denies chest pain, palpitations, or edema. RESPIRATORY: Denies cough or dyspnea. GASTROINTESTINAL: Denies abdominal pain, nausea, vomiting, or diarrhea. GENITOURINARY: Denies dysuria or hematuria. SKIN: Denies rash or itching. MUSCULOSKELETAL: Denies back pain, joint pain, or myalgia. NEUROLOGIC: Denies headache, numbness, or weakness. PSYCHIATRIC: Denies anxiety or depression. All other systems reviewed are negative, except as documented in HPI. [facility] Past Medical History Medical History (Updated 06/25/23 @ 17:01 by Marisa Guthrie NP) Depression Migraine with aura (normal spontaneous vaginal delivery) 2006 6lb 12oz female 2014 8lb 7oz female without dystocia noted at delivery but fractured clavicle Family History Family History (Updated 08/19/21 @ 14:56 by Lulu Morin RN) Other Patient denies significant medical history Unknown family medical history Social History Social History Smoking status: Never smoker Tobacco type: cigarettes Smoking end date: 09/04/21 Alcohol intake: current Drinks per week: 4 Alcohol use details: WEEKENDS Substance use: current Substance use type: marijuana Living arrangements: with family Gender identity (if verbalized by the patient): Female Spiritual care concerns: No Comments At time of signature, agree with nursing past medical, surgical, social and family history. There is no relevant family history pertinent to the presenting complaint. Exam Narrative: GENERAL: This is a well-nourished, well-developed patient, in no apparent distress. HEAD: normocephalic, atraumatic. EYES: PERRL. Sclera clear/white. Vision is grossly intact. EARS: External ears normal, auditory canals clear and without drainage, TMs normal without perforation. Hearing grossly intact. NOSE: External nose normal with no obvious nasal discharge, nares without redness, no rhinorrhea. THROAT: Mucous membranes moist, erythema with mild swelling. No swelling or exudates. NECK: Neck supple, non-tender without lymphadenopathy, masses or thyromegaly. CARDIOVASCULAR: Regular rate and rhythm without murmurs, gallops, or rubs. RESPIRATORY: Clear to auscultation. Breath sounds equal bilaterally. No wheezes, rales, or rhonchi. SKIN: warm, Dry, intact with no suspicious lesions or rash, good texture and turgor. NEURO: awake, alert, and oriented to person, place and time. There were no obvious focal neurologic abnormalities. EXTREMITIES: No joint tenderness, effusion, or edema noted. Course Course Level of Care: Express Care Visit Vital Signs Vital signs: Vital Signs Pulse Rate 81 06/25/23 16:48 Respiratory Rate 18 06/25/23 16:48 Blood P
== END 2023-06-25 17:05 | disposition home or self-care (01) ==
PROVIDERS: Emergency Provider Nurse Practitioner Family
DX: J02.0 Streptococcal pharyngitis (principal); Z87.891 Personal history of nicotine dependence
CPT/HCPCS: 87880; 99213; G0463

== ENCOUNTER 2024-04-17 08:18 | Emergency (ER) | payer BC, SELFPAY ==
[2024-04-17 08:28] VITALS: BP 146/65; PULSE 75; RESP 16; TEMP 36.4; O2SAT 100
--- OUTSIDE RECORDS SUMMARY | 2024-04-17 08:29 | XMS_ITS | Clinical Summary ---
Author Organization [facility] Health Address [address] [place] [address] Care Team Providers Care Cellular Equipment Installer Name Role Phone Nicole Kurtz APRN-TEA PLANTATION WORKER Primary Care Provider [phone] Source Comments [facility] [employer],non-owned Affiliates and Associated Physician Practices is amultiple site organization consisting of ambulatory clinics and hospital sitesin [place], [place], [place] and [place]. This disclosure is being madepursuant to the Care Everywhere program and may not contain all information available regarding this patient. Last updated 17.[facility] [employer] Allergies No known active allergies Medications * Be aware that medications may not be up to date on this document. Alwaysverify current medications with the patient. Medication Sig Dispensed Refills Start Date End Date Status OtherIndications:or al contraceptive Reasons: oral contraceptive Active multivitamin daily (THERAGRAN) tablet Take 1 tablet by mouth daily with food Active fluticasone propionate (FLONASE) 50 MCG/ACT nasal sprayIndications:Na sopharyngitis acute [place] 2 sprays into each nostril once daily 1 bottles 04/14/2017 Active Family History Medical History Relation Name Comments Arthritis - Rheumatoid Mother Relation Name Status Comments Father Alive Mother Alive Social History Tobacco Use Types Packs/Day Years Used Date Smoking Tobacco: Former Cigarettes Smokeless Tobacco: Never Sex and Gender Information Value Date Recorded Sex Assigned at Not on file Gender Identity Not on file Sexual Orientation Not on file Last Filed Vital Signs Vital Sign Reading Time Taken Comments Blood Pressure 128/72 04/14/2017 5:23 PM DAIRY FARMWORKER Pulse 86 04/14/2017 5:23 PM DAIRY FARMWORKER Temperature 36.8 ??C (98.3 ??F) 04/14/2017 5:23 PM CS T Respiratory Rate - - Oxygen Saturation 98% 04/14/2017 5:23 PM DAIRY FARMWORKER Inhaled Oxygen Concentration - - Weight 52.2 kg (115 lb) 04/14/2017 5:23 PM DAIRY FARMWORKER Height 157.5 cm (5' 2 ) 04/14/2017 5:23 PM DAIRY FARMWORKER Body Mass Index 21.03 04/14/2017 5:23 PM DAIRY FARMWORKER Plan of Treatment Health Maintenance Due Date Last Done Comments PAP SMEAR 1990 HIV SCREENING 2005 HEPATITIS C SCREENING 08/22/2008 DTAP/TDAP/TD VACCINES (1 - Tdap) 2009 HEPATITIS B VACCINE (1 of 3 - 19+ 3-dose series) 2009 COVID-19 VACCINE ( - 2023-2 5 season) 2023 INFLUENZA VACCINE (#1) 2023 DEPRESSION SCREENING 03/15/2024 ZOSTER VACCINE (1 of 2) 2040 HIB VACCINE Aged Out No longer eligi ble based on patient's age to complete this topic HPV VACCINE Aged Out No longer eligi ble based on patient's age to complete this topic MENINGOCOCCAL (Group B) VACCINE Aged Out No longer eligible based on patient's age to complete this topic MENINGOCOCCAL VACCINE Aged Out No adrianna polly eligible based on patient's age to complete this topic PNEUMOCOCCAL VACCINE Aged Out No long er eligible based on patient's age to complete this topic Care Teams Cellular Equipment Installer Relationship Specialty Start Date End Date Nicole Kurtz APRN-TEA PLANTATION WORKER [address] [place] [address] PCP - General 09/08/21
--- OUTSIDE RECORDS SUMMARY | 2024-04-17 08:29 | XMS_ITS | Referral Summary ---
Author Organization [facility] Health Address [address] [place] [address] Care Team Providers Care Cilnical Scientist Name Role Phone Nicole Kurtz APRN-ROUNDER HAND Primary Care Provider [phone] [phone] Source Comments [facility] [employer],non-owned Affiliates and Associated Physician Practices is amultiple site organization consisting of ambulatory clinics and hospital sitesin [place], [place], [place] and [place]. This disclosure is being madepursuant to the Care Everywhere program and may not contain all information available regarding this patient. Last updated 17.[facility] [employer] Allergies No known active allergies Medications * [...] (FLONASE) 50 MCG/ACT nasal sprayIndications:Na sopharyngitis acute [place] 2 sprays into each nostril once daily 1 bottles 04/14/2017 Active Social History Tobacco Use Types Packs/Day Years Used Date Smoking Tobacco: Former Cigarettes Smokeless Tobacco: Never Sex and Gender Information Value Date Recorded Sex Assigned at Not on file Gender Identity Not on file Sexual Orientation Not on file Last Filed Vital Signs Vital Sign Reading Time Taken Comments Blood Pressure 128/72 04/14/2017 5:23 PM MITER OPERATOR Pulse 86 04/14/2017 5:23 PM MITER OPERATOR Temperature 36.8 ??C (98.3 ??F) 04/14/2017 5:23 PM CS T Respiratory Rate - - Oxygen Saturation 98% 04/14/2017 5:23 PM MITER OPERATOR Inhaled Oxygen Concentration - - Weight 52.2 kg (115 lb) 04/14/2017 5:23 PM MITER OPERATOR Height 157.5 cm (5' 2 ) 04/14/2017 5:23 PM MITER OPERATOR Body Mass Index 21.03 04/14/2017 5:23 PM MITER OPERATOR Plan of Treatment Not on file Care Teams Cilnical Scientist Relationship Specialty Start Date End Date Nicole Kurtz APRN-ELMA [address] [place] [address] PCP - General 09/08/21
--- OUTSIDE RECORDS SUMMARY | 2024-04-17 08:29 | XMS_ITS | Patient Health Summary ---
Author Organization [facility] Health Address [address] [place] [address] Care Team Providers Care Hook Puller Name Role Phone Nicole Kurtz APRN-PLUMBING AND HEATING MECHANIC Primary Care Provider [phone] [phone] Note from [facility],non-owned Affiliates and Associated Physician Practices is amultiple site organization consisting of ambulatory clinics and hospital sitesin [place], [place], [place] and [place]. This disclosure is being madepursuant to the Care Everywhere program and may not contain all information available regarding this patient. Last updated 17.[facility] Allergies No known active allergies Medications * Be aware that medications may not be up to date on this document. Alwaysverify current medications with the patient. * Other Reasons: oral contraceptive * multivitamin daily (THERAGRAN) tablet Take 1 tablet by mouth daily with food * fluticasone propionate (FLONASE) 50 MCG/ACT nasal spray(Started 04/14/2017) [place] 2 sprays into each nostril once daily Social History Tobacco Use Types Packs/Day Years Used Date Smoking Tobacco: Former Cigarettes Smokeless Tobacco: Never Sex and Gender Information Value Date Recorded Sex Assigned at Not on file Gender Identity Not on file Sexual Orientation Not on file Last Filed Vital Signs Vital Sign Reading Time Taken Comments Blood Pressure 128/72 04/14/2017 5:23 PM INFECTION PREVENTION PRACTITIONER Pulse 86 04/14/2017 5:23 PM INFECTION PREVENTION PRACTITIONER Temperature 36.8 ??C (98.3 ??F) 04/14/2017 5:23 PM CS T Respiratory Rate - - Oxygen Saturation 98% 04/14/2017 5:23 PM INFECTION PREVENTION PRACTITIONER Inhaled Oxygen Concentration - - Weight 52.2 kg (115 lb) 04/14/2017 5:23 PM INFECTION PREVENTION PRACTITIONER Height 157.5 cm (5' 2 ) 04/14/2017 5:23 PM INFECTION PREVENTION PRACTITIONER Body Mass Index 21.03 04/14/2017 5:23 PM INFECTION PREVENTION PRACTITIONER Care Teams Hook Puller Relationship Specialty Start Date End Date Nicole Kurtz APRN-ELMA [address] [place] [address] PCP - General 09/08/21
--- OUTSIDE RECORDS SUMMARY | 2024-04-17 08:29 | XMS_ITS | Clinical Summary ---
Author Organization [facility] Address [address] [place] [address]. [place], [place] [address] [place] [id number] Care Team Providers Care Lorry Weigher Name Role Phone Unavailable Primary Care Provider Unavailabl e Social History Tobacco Use Types Packs/Day Years Used Date Smoking Tobacco: Never Assessed Comments Unknown Sex and Gender Information Value Date Recorded Sex Assigned at Not on file Legal Sex Female 7:00 PM CDT Gender Identity Not on file Sexual Orientation Not on file Plan of Treatment Health Maintenance Due Date Last Done Comments Cervical Cancer Screening Pa p Smear (Age 30 to 64) Every 3 Years 1990 Annual Physical 1993 Hepatitis C 2008 DTaP, Tdap and Td Vaccines ( 1 - Tdap) 2009 Hepatitis B Vaccines (1 of 3 - 19+ 3-dose series) 2009 Cervical Cancer Screening Pa p with HPV Testing (Age 30 to 64) Every 5 Years 2020 Cervical Cancer Screening with HPV 2020 COVID-19 Vaccine ( - 2023-2 5 season) 2023 Influenza Adult (#1) 2023 HPV Vaccines Aged Out No longer eligi ble based on patient's age to complete this topic Meningococcal B Vaccine Aged Out No l onger eligible based on patient's age to complete this topic Meningococcal Vaccine Aged Out No adrianna polly eligible based on patient's age to complete this topic Pneumococcal Vaccine: Pediat rics (0 to 5 Years) and At-Risk Patients (6 to 64 Years) Aged Out No longer eligible b ased on patient's age to complete this topic RSV Immunizations Under 20 Months Aged Out No longer eligible based on patient's age to complete this topic
[2024-04-17 08:44] LABS: EDUAAPPEAR Cloudy; EDUABILI Negative (Negative); EDUABLOOD Trace (Negative); EDUACOLOR1 Light/Pale; EDUAGLUCOSE Negative (Negative); EDUAKETONE Negative (Negative); EDUALEUKO 1+ (Negative); EDUANITRATE Negative (Negative); EDUAPH 6.5; EDUAPROTEIN Negative (Negative); EDUAUROBILI 0.2
--- NOTE | 2024-04-17 08:59 | ED.GENADULT ---
HPI - General Adult General Chief complaint: Urogenital-Female Stated complaint: UTI History of Present Illness HPI narrative: Dee Mitchell is a 33-year-old female who presents today with complaints of having about a week of pressure with urination, urgency and today started to have dysuria. She denies any fevers or chills she denies abdominal pain she denies chance of and she denies any flank pain. She states that she has had a urinary tract infection in the past and this feels similar to what she has had before. Related Data Home Medications ?Medication ?Instructions ?Recorded ?Confirmed ?Last Taken ?Type loratadine 10 mg tablet (Claritin) 10 mg PO DAILY 08/19/21 06/25/23 05/27/23 History prenat.vits,mely,zqq-tlqd-mewlw 1 tablet PO HS 08/19/21 06/25/23 05/31/23 History methylphenidate HCl 5 mg tablet 5 mg PO BID 05/27/23 06/25/23 05/16/23 History Allergies Allergy/AdvReac Type Severity Reaction Status Date / Time No Known Allergies Allergy Verified 04/17/24 08:30 Review of Systems Review of Systems: All systems reviewed & are unremarkable except as noted in HPI and below PMFSH Past Medical History Medical History Migraine with aura Depression (normal spontaneous vaginal delivery) 2006 6lb 12oz female 2014 8lb 7oz female without dystocia noted at delivery but fractured clavicle Family History Family History Other Patient denies significant medical history Unknown family medical history Social History Social History Smoking status: Never smoker Tobacco type: cigarettes Smoking end date: 09/04/21 Alcohol intake: current Drinks per week: 4 Alcohol use details: WEEKENDS Substance use: current Substance use type: marijuana Living arrangements: with family Gender identity (if verbalized by the patient): Female Spiritual care concerns: No Exam Narrative: General: Well-appearing, well-nourished, and in no acute distress. HEAD: Normocephalic, atraumatic. EYES: PERRLA and EOMI. ENT: Nares clear, no rhinorrhea or epistaxis. Mucous membranes moist. Oropharynx without tonsillar hypertrophy exudate or other lesions. Bilateral TMs pearly ortega nonbulging NECK: Supple. No adenopathy or masses. No carotid bruits or JVD CHEST: Clear to auscultation. No respiratory distress. No wheezes rales or rhonchi HEART: Regular rate and rhythm. No murmur heard. Normal peripheral pulses. ABDOMEN: Soft, nontender, nondistended, normal active bowel sounds. EXTREMITIES: Normal range of motion. No edema. SKIN: Warm, dry, no rash. NEURO: No focal deficits. Alert and oriented x3. PSYCH: Normal mood and affect. Course Course Level of Care: Express Care Visit Vital Signs Vital signs: Vital Signs Temperature 36.4 C L 04/17/24 08:28 Pulse Rate 75 04/17/24 08:28 Respiratory Rate 16 04/17/24 08:28 Blood Pressure 146/65 H 04/17/24 08:28 Pulse Oximetry 100 04/17/24 08:28 Oxygen Delivery Room Air 04/17/24 08:28 Temperature 36.4 C L 04/17/24 08:28 Pulse Rate 75 04/17/24 08:28 Respiratory Rate 16 04/17/24 08:28 Blood Pressure 146/65 H 04/17/24 08:28 Pulse Oximetry 100 04/17/24 08:28 Oxygen Delivery Room Air 04/17/24 08:28 Medical Decision Making MDM Narrative Medical decision making narrative: 33 year-old patient presenting with urinary symptoms consistent with UTI. Urinalysis is obtained and positive for signs of infection. Urine culture sent. Patient started on Cephalexin and strongly advised to return for any increasing or worsening pain, fevers or vomiting. They expressed understanding of instructions and is discharged in stable condition. Procedures: Pulse oximetry interpretation - not hypoxic. Review of medical records. DISPOSITION: Discharged home in stable condition. IMPRESSION: 1. Acute uncomplicated cystitis. Medical Records Medical records reviewed: Yes I reviewed the external patient's medical records. Vital Signs Vital Signs: Vital Signs Temperature 36.4 C L 04/17/24 08:28 Pulse Rate 75 04/17/24 08:28 Respiratory Rate 16 04/17/24 08:28 Blood Pressure 146/65 H 04/17/24 08:28 Pulse Oximetry 100 04/17/24 08:28 Oxygen Delivery Room Air 04/17/24 08:28 Temperature 36.4 C L 04/17/24 08:28 Pulse Rate 75 04/17/24 08:28 Respiratory Rate 16 04/17/24 08:28 Blood Pressure 146/65 H 04/17/24 08:28 Pulse Oximetry 100 04/17/24 08:28 Oxygen Delivery Room Air 04/17/24 08:28 vitals reviewed by me Lab Data Lab results reviewed: Yes I reviewed the patient's lab results. Labs: Lab Results 04/17/24 Range/Units 08:28 POC Urine Color Light/pale POC Urine Clarity Cloudy POC Urine pH 6.5 POC Ur Specif [place]ball 1.010 POC Urine Protein Negative (Negative) POC Ur Glucose (UA) Negative (Negative) POC Urine Ketones Negative (Negative) POC Urine Blood Trace (Negative) POC Urine Nitrite Negative (Negative) POC Urine Bilirubin Negative (Negative) POC Urine Urobilinogen 0.2 POC U Leukocyte Esteras 1+ (Negative) Discharge Plan Discharge Clinical Impression: Urinary tract infection Qualifiers: Urinary tract infection type: acute cystitis Hematuria presence: with hematuria Qualified Code(s): N30.01 - Acute cystitis with hematuria Patient Disposition: Home, Self-Care Condition: Stable Instructions: Antibiotic Form Additional Instructions: start taking the antibiotics as ordered twice daily for 1 week. Continue to push oral hydration drinking plenty of fluids, get plenty of rest. I would expect she does start to feel improvement within the next 48 hours if he develops any worsening symptoms such as flank pain, vomiting, abdominal pain then proceed to the ER. Here again be sent off a urine culture if you are being treated with antibiotic that does not work you will be notified to stop and change to different antibiotic. Patient Language: Amharic Prescriptions: New cephalexin 500 mg capsule 500 mg PO Q12H Qty: 14 0RF No Action loratadine [Claritin] 10 mg Tablet 10 mg PO DAILY prenat.vits,mely,fcv-mqmp-mdmxo Tablet 1 tablet PO HS methylphenidate HCl 5 mg tablet 5 mg PO BID Follow-up/Referrals: PHYSICIAN,IGNITION EXPERT [Primary Care Provider] - Time of Disposition: :02
== END 2024-04-17 09:05 | disposition home or self-care (01) ==
PROVIDERS: Emergency Provider Nurse Practitioner Family
DX: N30.01 Acute cystitis with hematuria (principal); Z87.891 Personal history of nicotine dependence
CPT/HCPCS: 81003; 87086; 99213; G0463